=== PATIENT | female | born 1995 | race Caucasian/White ===

== ENCOUNTER 2025-01-04 10:59 | Outpatient (RCR) | payer OTHER, SELFPAY | END 2025-02-24 08:49 | disposition home or self-care (01) | LOC: HO.PT 10:59 | PROVIDERS: PCP Internal Medicine; Visit Provider Advanced Practice Midwife | DX: N39.3 Stress incontinence (female) (male) (principal) | CPT/HCPCS: 97110; 97112; 97140; 97161 ==